=== PATIENT | male | born 1995 | race African-American/Black ===

== ENCOUNTER 2018-01-08 23:43 | Inpatient (IN) | payer BC, OTHER ==
[~2018-01-08] VITALS: Ht 177.8 cm; Wt 49.7 kg
--- NOTE | ~2018-01-08 | HC ---
[facility] [place] [address] CONSULTATION Name: СЕРГЕЙ RODRÍGUEZYOUNG Room #: 349-I ADM IN M.R.#: [id number] Admission: 01/09/18 Attend Phys: Alejandro Childress MD Discharge: Date of : 89 Report #: [id number] THIS REPORT FOR: //name// CC: Alejandro Childress [facility] physician/PCP DATE OF SERVICE: 01/09/2018 HISTORY OF PRESENT ILLNESS: The patient is a 22-year-old male who I have been asked to see for further evaluation of his elevated liver tests. He presented with left lower quadrant pain, which has now resolved. He has a complicated history recently over the course of last year and a half or so. The records are not available to me and so I have obtained his history per the patient, who is not the best historian. Apparently, he presented approximately a year ago to [facility] with diarrhea, pain and rectal bleeding of over a month's duration. He received treatment for ulcerative colitis, which he described as being his entire colon. At that time, he did not get resolution and presented to [facility], at which time he eventually required a total colectomy and an ileostomy. He presented to Dr. Stacy Ron for consideration of reanastomosis. There is some vagueness in his history as to whether or not his colectomy occurred via Dr. Ron at [facility] or at [facility]. I have been asked to see him for further evaluation of his elevated liver tests. PAST MEDICAL HISTORY: Otherwise notable for a GI bleed, the details of which are not available to me, ulcerative colitis and ileostomy. He is currently taking no medications. SOCIAL HISTORY: He denies alcohol or tobacco consumption. He denies illicit drug ingestion. He lives at home with his mother and is awaiting his reanastomosis. He used to work at [employer]. REVIEW OF SYSTEMS: Negative for weight loss, weakness or fatigue. He denies head, eyes, ears, nose and throat complaints. Denies chest pain, chest palpitation, chest pressure, cough, shortness of breath, wheezing, genitourinary, musculoskeletal or neuropsychiatric complaints beyond that mentioned above. PHYSICAL EXAMINATION: VITAL SIGNS: The patient is afebrile. Vital signs stable. HEENT: Nonicteric. NECK: No JVD, thyromegaly or bruits. CARDIOVASCULAR: Regular. LUNGS: Clear. ABDOMEN: Soft, nondistended, nontender, normoactive bowel sounds. No hepatosplenomegaly. No stigmata of chronic liver disease. He does have an ileostomy in the right lower quadrant. No abnormal masses or bruits. [address] [address] CONSULTATION Name: MARCOSTEVIN Room #: 349-I [facility] IN M.R.#: [id number] Admission: 01/09/18 Attend Phys: Alejandro Childress MD Discharge: Date of : 89 Report #: [id number] EXTREMITIES: Not examined. NEUROLOGIC: Not performed. RECTAL: Deferred. PERTINENT LABORATORY DATA: CBC notable for white count 14.6, hemoglobin 16.4, platelet count 290, MCV and RDW are normal. Serum chemistry notable for chloride 94, BUN 21, creatinine 1.4, sodium 132, glucose 149. Lactic acid 4.0, on presentation at 1.0. AST 45, ALT 79, alkaline phosphatase 161, total protein 9.3, albumin 4.4, lipase 203. Toxicology is negative, although he did have positive opiates on toxicology, which he denies. Abdominal CT showing surgical changes of colectomy with a right lower quadrant small bowel stoma and no acute abdominal or pelvic abnormality. ASSESSMENT AND PLAN: In summary, the patient has resolved left lower quadrant abdominal pain, history of total proctocolectomy, awaiting reanastomosis. He has elevated liver tests. This can be due to a number of different etiologies. In the setting of ulcerative colitis, primary sclerosing cholangitis can be a consideration. For this reason, I have ordered MRCP to evaluate his bile ducts. In addition, we would send off full workup for chronic active hepatitis including to exclude Bartolo disease, autoimmune hepatitis, primary biliary cirrhosis, hepatitis A, B and C, autoimmune hepatitis, etc. I appreciate the opportunity to participate in the care of this nice patient's presentation. <ELECTRONICALLY SIGNED> By: Betito Solis MD 01/10/18 [id number] Betito Solis MD /nt
[2018-01-09] VITALS (8 sets, daily range): BP systolic 90–109; BP diastolic 54–73
[2018-01-09 00:32] LABS: ABSOLUTE NEUTROPHILS 11.3 thou/uL (1.4-8.2); BASOPHILS 0.4 % (0.0-2.0); EOSINOPHILS 0.8 % (0.0-3.0); HEMATOCRIT 47.6 % (42.0-52.0); HEMOGLOBIN 16.4 gm/dL (14.0-18.0); LYMPHOCYTES 14.1 % (24.0-44.0); MCH 28.9 pg (26.0-34.0); MCHC 34.3 g/dL (28.0-37.0); MCV 84.2 fL (80.0-100.0); PLATELET COUNT 290 thou/uL (150-400); POLYS 77.7 % (36.0-66.0); RBC 5.66 mil/uL (4.50-6.00); RDW 15.4 % (10.5-14.5); WBC 14.6 thou/uL (4.0-11.0)
[2018-01-09 00:44] LABS: CALCIUM 9.4 mg/dL (8.5-10.1); CREATININE 1.4 mg/dL (0.7-1.3); POTASSIUM 3.6 mmol/L (3.5-5.1)
[2018-01-09 00:50] LABS: ALBUMIN 4.4 g/dL (3.4-5.0); DIRECT BILIRUBIN 0.2 mg/dL (<0.1-0.3); TOTAL BILIRUBIN 0.8 mg/dL (<0.1-1.0); TOTAL PROTEIN 9.3 g/dL (6.4-8.2)
[2018-01-09 02:22] LABS: URINE BILIRUBIN NEGATIVE (Negative); URINE BLOOD 2+ (Negative); URINE CLARITY CLEAR; URINE COLOR YELLOW; URINE GLUCOSE-RANDOM* NEGATIVE (Negative); URINE KETONES NEGATIVE (Negative); URINE LEUKOCYTES NEGATIVE (Negative); URINE NITRITE NEGATIVE (Negative); URINE PROTEIN (DIPSTICK) NEGATIVE (Negative); URINE SPECIFIC GRAVITY <= 1.005 (1.005-1.035); URINE UROBILINOGEN 0.2 E.U./dl (0.2-1.0)
[2018-01-09 02:46] LABS: BACTERIA None Seen /HPF (None Seen); CASTS None Seen /LPF (None Seen); CRYSTALS None Seen /LPF (None Seen); MUCUS None Seen strn/LPF (None Seen); SQUAMOUS None Seen /LPF (0-3); URINE RBC 0-2 Rare /HPF (0-2); URINE WBC None Seen /HPF (0-5)
[2018-01-09 07:10] LABS: AMP/METHAMP Negative (Negative); BARBITURATES Negative (Negative); BENZODIAZEPINES Negative (Negative); COCAINE Negative (Negative); METHADONE Negative (Negative); OPIATES POSITIVE (Negative); PCP Negative (Negative)
[2018-01-09 12:22] LABS: % SATURATION 10 % (20-39); IRON 37 ug/dL (65-175); TIBC 387 ug/dL (250-450)
[2018-01-10 04:53] LABS: ALBUMIN 2.8 g/dL (3.4-5.0); CALCIUM 8.1 mg/dL (8.5-10.1); CREATININE 0.8 mg/dL (0.7-1.3); POTASSIUM 3.2 mmol/L (3.5-5.1); TOTAL BILIRUBIN 0.4 mg/dL (<0.1-1.0)
[2018-01-10 05:00] VITALS: BP 95/59
[2018-01-10 05:26] LABS: HEMATOCRIT 33.8 % (42.0-52.0); MCH 29.6 pg (26.0-34.0); MCHC 34.3 g/dL (28.0-37.0); MCV 86.3 fL (80.0-100.0); RBC 3.91 mil/uL (4.50-6.00); RDW 15.3 % (10.5-14.5)
[2018-01-10 05:30] LABS: HEMOGLOBIN 11.6 gm/dL (14.0-18.0)
[2018-01-10 07:18] VITALS: BP 88/52
[2018-01-10 13:30] LABS: CALCIUM 9.1 mg/dL (8.5-10.1); POTASSIUM 3.6 mmol/L (3.5-5.1)
[2018-01-10 13:36] LABS: ALBUMIN 3.6 g/dL (3.4-5.0); TOTAL BILIRUBIN 0.6 mg/dL (<0.1-1.0); TOTAL PROTEIN 6.9 g/dL (6.4-8.2)
[2018-01-10 13:39] LABS: BE(vivo) -4.8 mmol/L (-2 to +3); HCO3 19.8 mmol/L (22.0-26.0); PCO2 35.3 mmHg (35.0-45.0); pH 7.367 (7.360-7.450); sO2 97.3 % (92.0-98.0)
[2018-01-10 14:52] VITALS: BP 95/59
[2018-01-10 17:56] VITALS: BP 111/74
[2018-01-10 19:38] VITALS: BP 101/72
[2018-01-11 03:35] VITALS: BP 107/67
[2018-01-11 05:49] LABS: HEMATOCRIT 34.4 % (42.0-52.0); HEMOGLOBIN 11.9 gm/dL (14.0-18.0); MCHC 34.6 g/dL (28.0-37.0); MCV 86.5 fL (80.0-100.0); RBC 3.98 mil/uL (4.50-6.00); RDW 15.3 % (10.5-14.5); WBC 8.9 thou/uL (4.0-11.0)
[2018-01-11 06:27] LABS: CALCIUM 8.4 mg/dL (8.5-10.1); CREATININE 0.7 mg/dL (0.7-1.3); POTASSIUM 3.1 mmol/L (3.5-5.1); TOTAL BILIRUBIN 0.5 mg/dL (<0.1-1.0); TOTAL PROTEIN 6.3 g/dL (6.4-8.2)
[2018-01-11 07:28] VITALS: BP 94/53
[2018-01-11 07:55] VITALS: BP 100/60
[2018-01-11 11:08] LABS: CERULOPLASMIN 14.8 mg/dL (16.0-31.0)
[2018-01-11 11:32] VITALS: BP 109/73
[2018-01-11] MEDS ORDERED: NORCO 5-325 TA1 EACH PO (12:13)
[2018-01-11] MEDS ORDERED: ACETAMINOPHEN325 M1 PO (12:13)
[2018-01-11 12:52] VITALS: BP 109/73
[2018-01-11 13:58] VITALS: BP 109/73
[2018-01-12 04:11] LABS: HAV IgM AB (ANTI-HAV IgM) Negative (Negative); HEPATITIS B SURFACE AG Negative (Negative); HEPATITIS C VIRUS AB 8.9 (0.0-0.9)
[2018-01-13 15:07] LABS: MITOCHONDRIAL ANTIBODY 12.4 Units (0.0-20.0)
== END 2018-01-11 13:19 | disposition home or self-care (01) | DRG 683 ==
LOC: ER 23:43 → EROBS 01-09 02:57 → 3W 01-09 02:57 → ENTRNSPT 01-11 13:13 → EDTRNSPTSTS 01-11 13:18 → 3W 01-11 13:19
PROVIDERS: Emergency Medicine; Hospitalist; Internal Medicine Gastroenterology; Nurse Practitioner Family
DX: N17.9 Acute kidney failure, unspecified (principal); E87.2 Acidosis; E87.1 Hypo-osmolality and hyponatremia; R10.32 Left lower quadrant pain; R94.5 Abnormal results of liver function studies; M53.3 Sacrococcygeal disorders, not elsewhere classified; D72.829 Elevated white blood cell count, unspecified; Z93.2 Ileostomy status; Z79.899 Other long term (current) drug therapy; Z90.49 Acquired absence of other specified parts of digestive tract
CPT/HCPCS: 10879